=== PATIENT | male | born 1945 | race Caucasian/White ===

== ENCOUNTER 2023-05-28 13:11 | Emergency (ER) | payer MEDICARE, OTHER, SELFPAY ==
--- NOTE | 2023-05-28 13:25 | ED.BACK ---
HPI - Back Pain/Injury General Chief Complaint: Back Pain/Injury Stated Complaint: back pain/fall Source: patient, family and RN notes reviewed History of Present Illness HPI Narrative: 78 yo M presents to urgent care with son at side. Pt states he had PT earlier today and was resting in his recliner when he stood up and passed out. Pt states he often gets dizzy when he stands up too fast but he has never lost consciousness. Pt states when he went down, he hit his left ear on the arm of the recliner and tweaked his right lower back. Pt denies any chest pain, SOB, N/V/D, WARD, blurry vision, numbness, tingling or neck pain. Pt did take (2) Motrin [employer] with some relief. Pt states he was only out for just a second. Related Data Home Medications Medication Instructions Recorded Confirmed atorvastatin 10 mg tablet 10 mg PO DAILY 05/28/23 05/28/23 Allergies Allergy/AdvReac Type Severity Reaction Status Date / Time No Known Allergies Allergy Verified 05/28/23 13:17 Review of Systems Review of Systems: CONSTITUTIONAL: Denies fever, chills, or sweats. EYES: Denies visual changes, redness, or discharge. ENT: Denies otalgia and sore throat CARDIOVASCULAR: Denies chest pain, palpitations, or edema. RESPIRATORY: Denies cough or dyspnea. GASTROINTESTINAL: Denies abdominal pain, nausea, vomiting, or diarrhea. GENITOURINARY: Denies dysuria or hematuria. SKIN: abrasion to left outer ear. MUSCULOSKELETAL: right lower back pain NEUROLOGIC: syncope Pertinent positives per HPI. PMFSH Comments At the time of my signature, I reviewed and agree with the nursing past medical, surgical, social, and family history. There is no relevant family history pertinent to the patient complaint. Exam Narrative: GENERAL: This is a well-nourished, well-developed patient, in no apparent distress. HEAD: normocephalic, atraumatic. EYES: Sclera clear/white. Vision is grossly intact. EARS: External ears normal, auditory canals clear and without drainage, TMs normal without perforation. Hearing grossly intact. NOSE: External nose normal with no obvious nasal discharge, nares without redness, no rhinorrhea. THROAT: Mucous membranes moist, posterior pharynx clear. NECK: Neck supple, non-tender without lymphadenopathy, masses or thyromegaly. CARDIOVASCULAR: Regular rate and rhythm without murmurs, gallops, or rubs. RESPIRATORY: Clear to auscultation. Breath sounds equal bilaterally. No wheezes, rales, or rhonchi. GASTROINTESTINAL: Abdomen soft, non-tender, nondistended. Bowel sounds are active. No hepato-splenomegaly, or palpable masses. No guarding. SKIN: abrasion to left outer ear NEURO: awake, alert, and oriented to person, place and time. There were no obvious focal neurologic abnormalities. EXTREMITIES: No clubbing, cyanosis, or edema. No joint tenderness, effusion, or edema noted. BACK: pt has tenderness to right lower back. no spinal tenderness. No flank bruising. Pt has limited ROM with torso due to the back pain catching him. Course Course Level of Care: Express Care Visit Vital Signs Vital signs: Vital Signs Temperature 97.5 F L 05/28/23 13:35 Pulse Rate 54 L 05/28/23 13:35 Respiratory Rate 18 05/28/23 13:35 Blood Pressure 114/60 05/28/23 13:35 Pulse Oximetry 100 05/28/23 13:35 Oxygen Delivery Room Air 05/28/23 13:35 Temperature 97.5 F L 05/28/23 13:35 Pulse Rate 67 05/28/23 14:13 Respiratory Rate 18 05/28/23 13:35 Blood Pressure 95/49 L 05/28/23 14:13 Pulse Oximetry 100 05/28/23 13:35 Oxygen Delivery Room Air 05/28/23 13:35 Reviewed MDM - Back Pain/Injury MDM Narrative Medical decision making narrative: It was discussed with pt and son why it is recommended pt be seen in the ER. Pt agrees to go to [place] ED. Son states he can drive him. Pt is stable. VSS. EKG shows bradycardia. Pt noted to be orthostatic hypotensive with vitals and pt's SG > 1.030. These findings
[2023-05-28 13:35] VITALS: BP 114/60; PULSE 54; RESP 18; TEMP 36.4; O2SAT 100
[2023-05-28 14:12] VITALS: BP 114/53; PULSE 54
[2023-05-28 14:13] VITALS: BP 113/62; BP 95/49; PULSE 59; PULSE 67
--- NOTE | 2023-05-28 14:30 | ECG_ITS ---
Measurements Intervals [place] Rate: 50 P: 39 MA: 150 QRS: 54 QRSD: 89 T: 75 QT: 419 QTc: 383 Interpretive Statements SINUS BRADYCARDIA OTHERWISE NORMAL ECG NO PREVIOUS ECG AVAILABLE FOR COMPARISON Electronically Signed On 05-28-2023 15:20:22 CDT by Domo Holman M.D.
== END 2023-05-28 14:40 | disposition short-term general hospital (02) ==
PROVIDERS: Emergency Provider Nurse Practitioner Family; PCP Family Medicine
DX: S39.012A Strain of muscle, fascia and tendon of lower back, initial encounter (principal); S09.90XA Unspecified injury of head, initial encounter; W19.XXXA Unspecified fall, initial encounter; R55 Syncope and collapse; E78.00 Pure hypercholesterolemia, unspecified
CPT/HCPCS: 81003; 93005; 99213; G0463

== ENCOUNTER 2023-05-28 15:03 | Emergency (ER) | payer MEDICARE, OTHER, SELFPAY ==
--- NOTE | ~2023-05-28 | CT_ITS ---
EXAMINATION: CT cervical spine wo con DATE: 05/28/2023 18:11 INDICATION: fall, syncope, HI TECHNIQUE: Computed tomography (CT) of the cervical spine was performed with intravenous contrast. Au tomated exposure control and iterative reconstruction technique were employed. The dose-length produc t was 345.10 mGy-cm. COMPARISON: None. FINDINGS: Vertebral Body Alignment: Upper cervical spine straightening, mild cervical lordosis reversal centere d at C6i. Trace anterolisthesis at C4-5, likely on a degenerative basis. Craniocervical and atlantoaxial alignment: Moderate degenerative change. Alignment intact. Osseous structures/fracture: No evidence of a lytic or blastic process in the visualized spine. No e vidence of acute fracture. Cervical soft tissues: The paraspinal soft tissues planes are maintained. Degenerative changes: Multilevel degenerative disc disease and facet arthropathy. Severe bilateral ne ural foraminal narrowing at C4-5. No severe central canal narrowing. IMPRESSION: No acute fracture or traumatic malalignment in the cervical spine. Reviewed, dictated and finalized at location K.
--- NOTE | ~2023-05-28 | CT_ITS ---
EXAMINATION: CT brain wo con DATE: 05/28/2023 18:11 INDICATION: syncope, HI . TECHNIQUE: Computed tomography (CT) of the head was performed without intravenous contrast. The mA wa s adjusted according to patient size. Iterative reconstruction technique was employed. The dose-lengt h product was 605.33 mGy-cm. COMPARISON: None. FINDINGS: No acute intracranial hemorrhage or extra-axial fluid collection. No hydrocephalus, mass, or herniation. No acute ischemic infarct. Unremarkable dural venous sinus attenuation. No acute osseous abnormality. The aerated spaces are clear. Moderate atrophy and chronic white matter change. Atherosclerotic intracranial calcification. Bilater al lens replacements. IMPRESSION: No acute intracranial process. Reviewed, dictated and finalized at location K.
[2023-05-28 15:38] VITALS: BP 141/74; PULSE 54; RESP 100; TEMP 36.2; O2SAT 100
--- NOTE | 2023-05-28 15:41 | ECG_ITS ---
Measurements Intervals [place] Rate: 49 P: 52 NM: 144 QRS: 60 QRSD: 85 T: 73 QT: 413 QTc: 375 Interpretive Statements SINUS BRADYCARDIA OTHERWISE NORMAL ECG COMPARED TO ECG 05/28/2023 14:30:31 NO SIGNIFICANT CHANGES Electronically Signed On 05-29-2023 9:14:27 CDT by Domo Holman M.D.
[2023-05-28 15:59] LABS: Basophils Percent Auto 0.5 % (0.2-1.2); Eosinophils Absolute Auto 0.2 K/mm3 (0-0.3); Eosinophils Percent Auto 2.2 % (0-4.4); Hematocrit 42.4 % (42.0-52.0); Hemoglobin 14.4 g/dL (14.0-18.0); Immature Granulocyte Absolute 0.02 K/mm3 (0.00-0.031); Immature Granulocyte Percent A 0.3 % (0-0.5); Lymphocytes Absolute Auto 1.78 K/mm3 (0.9-3.2); Lymphocytes Percent Auto 24.3 % (18.3-44.2); Mean Platelet Volume 10.6 fl (7.4-10.4); Monocytes Absolute Auto 0.6 K/mm3 (0.1-0.6); Monocytes Percent Auto 7.9 % (2.6-8.5); Neutrophils Absolute Auto 4.7 K/mm3 (1.3-6.7); Neutrophils Percent Auto 64.8 % (45.5-73.1); Platelet Count Result 192 k/mm3 (150-375); Red Blood Count 4.24 M/mm3 (4.6-6.20); Red Cell Distribution Width 12.3 % (11.5-14.5); White Blood Count 7.3 K/mm3 (4.5-10.0)
[2023-05-28 16:12] LABS: Alanine Aminotransferase 31 U/L (6-50); Albumin Level 4.4 g/dL (3.5-5.1); Alkaline Phosphatase 68 U/L (38-126); Anion Gap 7 mmol/L (8-16); Aspartate Amino Transferase 38 U/L (17-59); Bilirubin,Total 1.6 mg/dL (0.2-1.3); Blood Urea Nitrogen 28 mg/dL (9-20); Calcium 10.1 mg/dL (8.4-10.2); Carbon Dioxide 26 mmol/L (22-30); Chloride 106 mmol/L (98-107); Estimated CRCL calculation 70 ml/min; Estimated Glomerular Filt Rate > 60; Glucose 96 mg/dL (65-110); Potassium 4.9 mmol/L (3.4-5.0); Sodium 139 mmol/L (137-145)
[2023-05-28 20:35] VITALS: BP 147/79; PULSE 65; TEMP 36.6; O2SAT 99
[2023-05-28 23:05] VITALS: BP 114/67; PULSE 57; RESP 16; O2SAT 100; O2SAT 99
[2023-05-28] MEDS: TETANUS,DIPHTHERIA,AC PERTUSSIS ADULT (0.5 ML) BOOSTRIX IM (23:59)
[2023-05-29] MEDS: SODIUM CHLORIDE 0.9% IV 1,000 ML 999 ML IV CONT
[2023-05-29 00:04] VITALS: BP 115/69; PULSE 49
[2023-05-29 00:05] VITALS: BP 115/69; PULSE 48
[2023-05-29 00:06] VITALS: BP 123/63; PULSE 59
--- NOTE | 2023-05-29 00:59 | ED.GENADULT ---
HPI - General Adult General Chief complaint: Syncope Stated complaint: sent for head injury/syncopal episode Time Seen by Provider: 05/28/23 23:20 History of Present Illness HPI narrative: Patient 78-year-old gentleman who presents the emergency department with chief complaint of left ear pain and syncopal episode. Patient reports that he was having lightheadedness and after he got up from a chair patient states that he started to pass out and then fell and struck his left ear against the chair. The patient reports that he broke part of his hearing aid and reports there is a small laceration behind his ear. Patient reports that he had a little bit of soreness in his back after the fall and reports that that is subsequently improved. Related Data Home Medications Medication Instructions Recorded Confirmed atorvastatin 10 mg tablet 10 mg PO DAILY 05/28/23 05/28/23 Allergies Allergy/AdvReac Type Severity Reaction Status Date / Time No Known Allergies Allergy Verified 05/28/23 23:13 Review of Systems Review of Systems: A 10 system review of systems was completed on the patient and is negative except for what is stated in the HPI. Nursing and ancillary documentation was reviewed. Exam Narrative: GENERAL: Well-appearing, well-nourished, and in no acute distress. HEAD: Normocephalic, atraumatic. EYES: PERRLA and EOMI. ENT: Nares clear, no rhinorrhea or epistaxis. Mucous membranes moist. Consider laceration to the left ear no cartilage exposed NECK: Supple. CHEST: Clear to auscultation. No respiratory distress. HEART: Regular rate and rhythm. No murmur heard. Normal peripheral pulses. ABDOMEN: Soft, nontender, nondistended, normal active bowel sounds. EXTREMITIES: Normal range of motion. No edema. SKIN: Warm, dry, no rash. NEURO: No focal deficits. Alert and oriented x3. PSYCH: Normal mood and affect. Course Vital Signs Vital signs: Vital Signs Temperature 36.2 C L 05/28/23 15:38 Pulse Rate 54 L 05/28/23 15:38 Respiratory Rate 100 H 05/28/23 15:38 Blood Pressure 141/74 H 05/28/23 15:38 Pulse Oximetry 100 05/28/23 15:38 Temperature 36.6 C 05/28/23 20:35 Pulse Rate 59 L 05/29/23 00:06 Respiratory Rate 16 05/28/23 23:05 Blood Pressure 123/63 05/29/23 00:06 Pulse Oximetry 99 05/28/23 23:05 Oxygen Delivery Room Air 05/28/23 23:05 Procedures Laceration Laceration 1: Date: 05/29/23 Time: 01:20 Site: other (left ear) Side (If applicable): left Size (cm): 1 Description: linear Depth: simple, single layer Pre-repair: wound explored and irrigated extensively ====== Skin Level ====== Skin layer closed with: dermabond ====== Subcutaneous Layer ====== ====== Muscle Layer ====== ====== Tendon Layer ====== Medical Decision Making MDM Narrative Medical decision making narrative: Differential diagnosis includes vasovagal syncope, orthostatic hypotension, electrolyte abnormality, ICH age, subdural, cervical spine fracture CT head and CT C-spine showed no evidence of acute abnormality Laboratory studies were obtained which were within normal limits. The patient did get lightheaded with standing I was given a liter normal saline and is feeling much better at this time. Vital Signs Vital Signs: Vital Signs Temperature 36.2 C L 05/28/23 15:38 Pulse Rate 54 L 05/28/23 15:38 Respiratory Rate 100 H 05/28/23 15:38 Blood Pressure 141/74 H 05/28/23 15:38 Pulse Oximetry 100 05/28/23 15:38 Temperature 36.6 C 05/28/23 20:35 Pulse Rate 59 L 05/29/23 00:06 Respiratory Rate 16 05/28/23 23:05 Blood Pressure 123/63 05/29/23 00:06 Pulse Oximetry 99 05/28/23 23:05 Oxygen Delivery Room Air 05/28/23 23:05 Lab Data 05/28/23 15:51 05/28/23 15:51 Labs: Lab Results 05/28/23 Range/Units 15:51 WBC 7.3 (4.5-10.0)
[2023-05-29 01:36] VITALS: BP 123/77; PULSE 49; RESP 18; O2SAT 100
== END 2023-05-29 01:37 | disposition home or self-care (01) ==
PROVIDERS: General Practice; Emergency Provider Emergency Medicine; PCP Family Medicine
DX: S01.312A Laceration without foreign body of left ear, initial encounter (principal); I95.1 Orthostatic hypotension; Z23 Encounter for immunization; R00.1 Bradycardia, unspecified; W01.190A Fall on same level from slipping, tripping and stumbling with subsequent striking against furniture, initial encounter
CPT/HCPCS: 12011; 36415; 70450; 72125; 80053; 81003; 85025; 90471; 90715; 93005; 96360; 99284; J7030

== ENCOUNTER 2023-10-21 05:43 | Emergency (ER) | payer MEDICARE, OTHER, SELFPAY ==
--- NOTE | ~2023-10-21 | CT_ITS ---
CT head without contrast Indication: Status post fall COMPARISON: 05/28/2023 Technique: Serial scans were obtained through the brain without the administration of contrast. Dose reduction technique was used on this scan by utilizing automated exposure control and iterative recon struction technique. The dose-length product (DLP) was 756.67 mGy-cm. Findings: There is no evidence of intracranial hemorrhage, mass lesion, or acute infarct. The ventri cles and subarachnoid spaces are dilated, consistent with mild to moderate atrophy. Low attenuation regions are seen within the periventricular white matter bilaterally, likely representing changes fro m chronic microvascular ischemic disease. There is no evidence of edema, mass effect or midline shif t. The visualized paranasal sinuses and mastoid air cells are clear. Impression: No intracranial hemorrhage, mass, or acute infarct. Atrophy and chronic white matter changes, as above. Reviewed, dictated and finalized at location M. [employer] Impression: No intracranial hemorrhage, mass, or acute infarct. Atrophy and chronic white matter changes, as above.
--- NOTE | ~2023-10-21 | CT_ITS ---
Noncontrast CT scan of the cervical spine Technique: Multiple contiguous axial [address] images of the cervical spine were obtained and rec onstructed in 2D sagittal and coronal planes on the acquisition scanner. Dose reduction technique was used on this scan by utilizing automated exposure control, adjustment of the mA and/or kV according to patient size. The dose-length product (DLP) was 466.33 mGy-cm. Clinical History: Pain Findings: No fractures or dislocations. There is advanced degenerative disc narrowing at C5-C6 and C 6-C7. There is fusion of the right facet joints at C2-C3 and C3-C4. There is also probable fusion of the right C5-C6 facet joint. There is extensive facet arthropathy throughout the cervical spine. Ther e is right neural foraminal narrowing at C4-C5. No prevertebral soft tissue swelling. Impression: No fracture or subluxation of the cervical spine. Degenerative spondylosis, as above. Reviewed, dictated and finalized at [facility]. [employer] Impression: No fracture or subluxation of the cervical spine. Degenerative spondylosis, as above.
[2023-10-21 05:37] VITALS: BP 132/82; PULSE 56; RESP 16; TEMP 36.6; O2SAT 97
[2023-10-21 07:13] VITALS: BP 118/69; PULSE 50; RESP 20; TEMP 36.7; O2SAT 100
--- NOTE | 2023-10-21 07:22 | ED.FALL ---
HPI - Fall General Chief Complaint: Fall Stated Complaint: fall, head trauma Time Seen by Provider: 10/21/23 06:51 78-year-old male presenting to the emergency department for evaluation after having a ground level fall. Patient was walking his dog this morning and slipped on ice. Patient is unsure about loss of consciousness. Patient is not on blood thinners. Patient does have a laceration to his posterior scalp. Related Data Home Medications Medication Instructions Recorded Confirmed atorvastatin 10 mg tablet 10 mg PO DAILY 05/28/23 05/28/23 Allergies Allergy/AdvReac Type Severity Reaction Status Date / Time No Known Allergies Allergy Verified 10/21/23 05:52 Review of Systems Review of Systems: All systems reviewed & are unremarkable except as noted in HPI and below Exam Narrative: APPEARANCE: Well appearing, no pain, no distress, well-nourished. HEAD: normocephalic, atraumatic. EYES: PERRLA/EOMI, conjunctivae clear. NOSE: Normal no drainage EARS:TMS clear with good light reflex. THROAT: Pharynx clear, no exudate. NECK: Supple. No adenopathy, no masses. RESPIRATORY: Airway patent, respirations nonlabored. Clear to auscultation bilaterally, no rales, rhonchi, wheezing. CARDIOVASCULAR: Regular rate and rhythm without murmurs rubs or gallops. ABDOMINAL: Soft, nontender, nondistended, normal bowel sounds MUSCULOSKELETAL: Moves all extremities. Strength/ROM intact, No edema, No calf tenderness. NEURO: Alert. Cranial nerves II through XII intact. Good gait. Good coordination SKIN: Posterior scalp laceration Course Course Emergency Course: 78-year-old male present to the emergency department for evaluation after having a fall and subsequent scalp laceration. Laceration was repaired as described above. Patient was started on Keflex for a laceration. Patient was updated on the results of imaging, care for the laceration and on the antibiotic course. All questions concerns were addressed patient was well-appearing at time of discharge. Vital Signs Vital signs: Vital Signs Temperature 97.9 F 10/21/23 05:37 Pulse Rate 56 L 10/21/23 05:37 Respiratory Rate 16 10/21/23 05:37 Blood Pressure 132/82 10/21/23 05:37 Pulse Oximetry 97 10/21/23 05:37 Oxygen Delivery Room Air 10/21/23 05:37 Temperature 97.9 F 10/21/23 09:36 Pulse Rate 60 10/21/23 09:36 Respiratory Rate 18 10/21/23 09:36 Blood Pressure 107/64 10/21/23 09:36 Pulse Oximetry 97 10/21/23 09:36 Oxygen Delivery Room Air 10/21/23 05:37 Procedures Laceration Laceration 1: Site: scalp Side (If applicable): left Description: linear and flap Depth: simple, single layer Local Anesthetic: lidocaine 1% Amount of anesthesia used (mL): 3 Pre-repair: wound explored and irrigated ====== Skin Level ====== Skin layer closed with: patricia Number of sutures: 6 Technique: simple, interrupted ====== Subcutaneous Layer ====== ====== Muscle Layer ====== ====== Tendon Layer ====== MDM - Fall Differential Diagnosis Differential diagnosis: Likely other (Intracranial abnormality, subdural, subarachnoid hemorrhage, cervical spine fracture, scalp laceration) Imaging Data Radiologist's impression: Impressions Head CT 10/21/23 06:34 Impression: No intracranial hemorrhage, mass, or acute infarct. Atrophy and chronic white matter changes, as above. Cervical Spine CT 10/21/23 06:35 Impression: No fracture or subluxation of the cervical spine. Degenerative spondylosis, as above. Discharge Plan Discharge Clinical Impression: Laceration of head, Head injury Patient Disposition: Home, Self-Care Condition: Stable Instructions: Antibiotic Form, Head Injury (ED), Staple Care (ED) Additional Instructions: Patricia need to be removed in 5-7 days. Wound care as directed. Have close follow-up
[2023-10-21] MEDS: CEPHALEXIN 500 MG CAPSULE PO (09:13)
[2023-10-21 09:36] VITALS: BP 107/64; PULSE 60; RESP 18; TEMP 36.6; O2SAT 97
== END 2023-10-21 09:20 | disposition home or self-care (01) ==
PROVIDERS: Emergency Provider Emergency Medicine; PCP Family Medicine
DX: S01.01XA Laceration without foreign body of scalp, initial encounter (principal); W00.0XXA Fall on same level due to ice and snow, initial encounter; Y93.K1 Activity, walking an animal
CPT/HCPCS: 70450; 72125; 99284; A9270